=== PATIENT | male | born 2000 | race Caucasian/White ===

== ENCOUNTER 2018-11-05 17:45 | Emergency (ER) | payer OTHER ==
[2018-11-05 18:37] VITALS: BP 113/70
--- NOTE | 2018-11-05 18:54 | UC ---
General HPI - HPI Summary HPI Summary: pt states that he has been having "random anxiety and panic attacks" this week. he states he has had some depression in the past but never needed tx. he just relocated here and started his semester at [employer]. he reports that the coarse load is intense and he is feeling over whelmed. he denies any suicidal or homicidal thoughts. he has an appointment with a counselor this . sometimes he gets light headed, sob and feels like passing out when he panics. no associated cp. he did constitution party hard with alcohol this past week which he thinks made things worse. he denies any drug use. - History of Current Complaint Chief Complaint: UCGeneralIllness Stated Complaint: ANXIETY/PANIC ATTACKS Time Seen by Provider: 11/05/18 18:47 Hx Obtained From: Patient Pain Intensity: 0 - Allergy/Home Medications Allergies/Adverse Reactions: Allergies Allergy/AdvReac Type Severity Reaction Status Date / Time No Known Allergies Allergy Verified 11/05/18 18:37 PMH/Surg Hx/FS Hx/Imm Hx Psychological History: Depression - Surgical History Surgical History: None - Family History Known Family History: Positive: Other - mom is bipolar - Social History Occupation: Student Lives: Dormitory/Roommates Alcohol Use: Weekly Substance Use Type: None Smoking Status (MU): Never Smoked Tobacco Review of Systems All Other Systems Reviewed And Are Negative: Yes Constitutional: Positive: Negative Skin: Positive: Negative Eyes: Positive: Negative ENT: Positive: Negative Cardiovascular: Positive: Negative Gastrointestinal: Positive: Negative Genitourinary: Positive: Negative Motor: Positive: Negative Neurovascular: Positive: Negative Musculoskeletal: Positive: Negative Neurological: Positive: Negative Psychological: Positive: Anxious Is Patient Immunocompromised?: No Physical Exam Triage Information Reviewed: Yes Appearance: Well-Appearing, Other: - Well groomed Vital Signs: Initial Vital Signs Temp 98.2 F 11/05/18 18:29 Pulse 79 11/05/18 18:29 Resp 16 11/05/18 18:29 BP 113/70 11/05/18 18:29 Pulse Ox 100 11/05/18 18:29 Vital Signs Reviewed: Yes Eyes: Positive: Conjunctiva Clear ENT: Positive: Pharynx normal, TMs normal. Negative: Nasal congestion, Nasal drainage Neck: Positive: Supple, Nontender, No Lymphadenopathy Respiratory: Positive: Lungs clear, Normal breath sounds, No respiratory distress Cardiovascular: Positive: RRR, No Murmur Abdomen Description: Positive: Nontender, No Organomegaly, Soft Bowel Sounds: Positive: Present Musculoskeletal: Positive: ROM Intact Neurological: Positive: Alert Psychological: Positive: Age Appropriate Behavior, Other: - Good insight and judgement. Well groomed Skin Exam: Normal Diagnostics - EKG Cardiac Rate: NL Cardiac Rhythm: Sinus: Normal Ectopy: None ST Segment: Normal Course/Dx - Differential Dx - Multi-Symptom Differential Diagnoses: Other - NO CONCERN FOR SUICIDAL OR HOMICIDAL IDEATION. NO ARRYTHMIA ON EKG. HAS F/U WITH COUSELOR IN 2 DAYS. AGREES TO GO TO ER FOR ANY WORSEING. I OFFERED TO SPEAK WITH HIS PARENTS BUT PT DECLINED. HE WILLL CALL HIS DAD ON WAY HOME. - Diagnoses Provider Diagnosis: Anxiety as acute reaction to gross stress Discharge - Sign-Out/Discharge Documenting (check all that apply): Patient Departure All imaging exams completed and their final reports reviewed: No Studies - Discharge Plan Condition: Stable Disposition: HOME Prescriptions: hydrOXYzine pamoate [Vistaril] 25 mg PO Q6HR PRN #10 capsule PRN Reason: Anxiety Patient Education Materials: Anxiety (ED) Referrals: LOUISE DELGADO [[email or web address], APPLICATION, OTHER] - As Soon As Possible Additional Instructions: KEEP THE APPOINTMENT WITH COUNSELING IN 2 DAYS. GO TO THE ER FOR ANY CHANGES OR WORSENING. - Billing Disposition and Condition Condition: STABLE Disposition: Home - Attestation Statements Provider Attestation: I was available for consult. This patient was seen by the [facility]. The patient was not presented to, seen by, or examined by me. -Esther
== END 2018-11-05 19:19 | disposition home or self-care (01) ==
LOC: UCCORT 17:45
DX: F41.9 Anxiety disorder, unspecified (principal); F43.0 Acute stress reaction
CPT/HCPCS: 93005; 99202; G0463

== ENCOUNTER 2019-06-07 17:19 | Emergency (ER) | payer OTHER ==
[2019-06-07 17:45] VITALS: BP 115/72
--- NOTE | 2019-06-07 18:08 | UC ---
Epistaxis Nasal HPI - HPI Summary HPI Summary: C/O nasal congestion and maxillary sinus pain over the last week, since returning to school. Lives with a dog. No fever/ sweats or chills. No sore throat or cough. - History of Current Complaint Chief Complaint: UCRespiratory Stated Complaint: SINUS CONCERN Time Seen by Provider: 06/07/19 17:55 Hx Obtained From: Patient Onset/Duration: Gradual Onset, Lasting Weeks - 1, Worse Since - onset Timing: Constant Severity Initially: Mild Severity Currently: Moderate Pain Intensity: 5 Character: Light Aggravating Factor(s): Other - allergic congestion with green drainage. Alleviating Factor(s): Nothing Associated Signs And Symptoms: Positive: Sinus Pain - Allergies/Home Medications Allergies/Adverse Reactions: Allergies Allergy/AdvReac Type Severity Reaction Status Date / Time No Known Allergies Allergy Verified 06/07/19 17:38 Home Medications: Home Medications Ibuprofen TAB* [Advil TAB*] 400 mg PO Q6H PRN 06/07/19 [History Confirmed ] PMH/Surg Hx/FS Hx/Imm Hx Other Respiratory History: Seasonal allergies. - Surgical History Surgical History: None - Family History Known Family History: Positive: Diabetes, Other - mom is bipolar - Social History Occupation: Student Lives: Dormitory/Roommates Alcohol Use: Occasionally Substance Use Type: None Smoking Status (MU): Never Smoked Tobacco Review of Systems All Other Systems Reviewed And Are Negative: Yes ENT: Positive: Nasal Discharge, Sinus Pain/Tenderness Physical Exam Triage Information Reviewed: Yes Appearance: Well-Appearing, Well-Nourished, Pain Distress - mild Vital Signs: Initial Vital Signs Temp 98.6 F 06/07/19 17:39 Pulse 81 06/07/19 17:39 Resp 16 06/07/19 17:39 BP 115/72 06/07/19 17:39 Pulse Ox 98 06/07/19 17:39 Vital Signs Reviewed: Yes Eyes: Positive: Conjunctiva Clear ENT: Positive: Nasal congestion - severe with allergic changes., TMs normal Neck exam: Normal Respiratory Exam: Normal Cardiovascular Exam: Normal Musculoskeletal Exam: Normal Neurological Exam: Normal Psychological Exam: Normal Skin Exam: Normal Epistaxis Nasal Course/Dx - Differential Dx/Diagnosis Differential Diagnosis/HQI/PQRI: Allergic Rhinitis, Epistaxis, Polyps, Sinusitis Provider Diagnosis: Allergic rhinitis due to dog hair, Sinus headache Discharge ED - Sign-Out/Discharge Documenting (check all that apply): Patient Departure All imaging exams completed and their final reports reviewed: No Studies - Discharge Plan Condition: Stable Disposition: HOME Prescriptions: Fluticasone NASAL SPRAY 50MCG* [Flonase NASAL SPRAY 50MCG*] 2 spray BOTH NARES DAILY #1 btl Patient Education Materials: Allergies (ED), Fluticasone (Into the nose) Referrals: No Primary Care Phys,NOPCP [Primary Care Provider] - Additional Instructions: NEILMED SINUS RINSE: CHECK OUT AT [facility] Saline nasal wash helps with mucous, allergies and congestion. It can be used up to twice a day or only as needed. Use lukewarm tap water. It does not have to be sterilized or distilled water. Do 1/3 on each side and snort out of both nostrils. Repeat the process with 1/6 of the bottle on each side with snorting in between to finish the solution in the bottle Do the fluticasone nasal spray 30-45 minutes after the sinus rinse. Tilt the head down, nose to toes, when doing the spray. - Billing Disposition and Condition Condition: STABLE Disposition: Home
== END 2019-06-07 18:15 | disposition home or self-care (01) ==
LOC: UCCORT 17:19
DX: J30.89 Other allergic rhinitis (principal); G44.89 Other headache syndrome
CPT/HCPCS: 99212; G0463